=== PATIENT | male | born 1950 | race Caucasian/White ===

== ENCOUNTER 2016-11-07 17:30 | Inpatient (IN) | payer OTHER ==
[~2016-11-07] VITALS: Ht 193 cm; Wt 90.9 kg
[~2016-11-07 17:30] MED LIST: ALEVE220 M1 PO; ASPIR 8181 M1 PO; ASPIR-TRIN325 M1 PO; ATARAX,VISTARIL50 MG PO; AUGMENTIN875 MG PO; Ambien PO; Atarax,Vistaril PO; CAMPRAL333 MG PO; EFFEXOR XR150 MG PO; Effexor XR PO; FLEXERIL10 MG PO; LIPITOR20 MG PO; LORTAB 5-325 M1 EACH PO; MOBIC7.5 MG PO; NORVASC5 MG PO; PREDNISONE10 MG PO; SPIRIVA1 INHALATI IH; VENLAFAXINE HCL75 MG PO; VISTARIL25 M1 PO; ZYPREXA20 MG PO
[2016-11-07 18:36] LABS: HEMATOCRIT 45.7 % (38.0-50.0); MCH 31.2 PG (29.0-34.0); MCHC 34.8 G/DL (30.0-36.0); MCV 89.8 FL (86-99); MEAN PLAT.VOLUME 8.8 uM^3 (9.0-12.4); PLATELET COUNT 267 K/uL (156-360); RBC DIS.WIDTH-CV 13.3 % (11.8-14.6); RED BLOOD COUNT 5.09 M/uL (4.00-5.50); WHITE BLOOD COUNT 11.9 K/uL (4.1-10.2)
[2016-11-07 18:51] LABS: CHLORIDE 101 mEq/L (99-109); POTASSIUM 4.8 mEq/L (3.7-5.4); SODIUM 135 mEq/L (136-147)
[2016-11-07 18:53] LABS: GLUCOSE 86 mg/dL (70-99)
[2016-11-07 18:54] LABS: ANION GAP 10 MEQ/L (2-14)
[2016-11-07 18:57] LABS: GFR ESTIMATE (CALCULATED) > 59 mL/min/; UREA NITROGEN (BUN) 19 mg/dL (9-23)
[2016-11-07 18:59] LABS: TROP-I INTERPRETATION NEGATIVE; TROPONIN-I < 0.01 ng/mL (0.0-0.30)
[2016-11-07] MEDS ORDERED: LIPITOR40 MG PO (19:52)
[2016-11-07] MEDS ORDERED: VENLAFAXINE HCL75 M3 PO (19:52)
[2016-11-07] MEDS ORDERED: CARDIZEM CD,CA180 MG PO (19:53)
[2016-11-07] MEDS ORDERED: VALSARTAN80 MG PO (19:53)
[2016-11-07 21:28] LABS: ALKALINE PHOSPHATASE 103 IU/L (3-129); SERUM ETHYL ALCOHOL < 10 mg/dL
[2016-11-07 21:28] LABS: ADD MIUA? YES; BILIRUBIN NEGATIVE; BLOOD NEGATIVE; COLOR YELLOW ((YELLOW)); GLUCOSE (STRIP) NEGATIVE; KETONES NEGATIVE; LEUKOCYTES LARGE; NITRITE POSITIVE; PROTEIN (STRIP) NEGATIVE; SPECIFIC GRAVITY 1.005 (1.000-1.030); UROBILINOGEN 0.2 MG/DL (0.2-1.0)
[2016-11-07 21:31] LABS: DIRECT BILIRUBIN 0.4 mg/dL (0.0-0.3)
[2016-11-07 21:33] LABS: BACTERIA 3+ /HPF; EPITHELIAL CELLS NONE SEEN /HPF; MUCUS NONE SEEN /LPF; RED BLOOD CELLS 0-5 /HPF (0-5); UCUL ADDED? YES; WHITE BLOOD CELLS TNTC /HPF (0-5); WHITE BLOOD CELLS CLUMP MOD /HPF (0-5)
[2016-11-07 21:42] LABS: ADD MEDTOX COMMENT Y; AMPHETAMINE NEGATIVE (500 ng/mL); BARBITURATES NEGATIVE (200 ng/mL); BENZODIAZEPINES NEGATIVE (150 ng/mL); COCAINE NEGATIVE (150 ng/mL); INTERNAL CONTROLS VALID? YES; METHADONE NEGATIVE (200 ng/mL); METHAMPHETAMINE NEGATIVE (500 ng/mL); OPIATES (MORPHINE) NEGATIVE (100 ng/mL); OXYCODONE NEGATIVE (100 ng/mL); PHENCYCLIDINE NEGATIVE (25 ng/mL); PROPOXYPHENE NEGATIVE (300 ng/mL); THC CANNABINOIDS PRESUMPTIVE POSITIVE (50 ng/mL); TRICYCLIC ANTIDEPRESSANTS NEGATIVE (300 ng/mL)
[2016-11-07 22:54] VITALS: BP 109/65
[2016-11-08 01:32] LABS: TROP-I INTERPRETATION NEGATIVE; TROPONIN-I < 0.01 ng/mL (0.0-0.30)
[2016-11-08 03:43] VITALS: BP 126/70
[2016-11-08 08:43] VITALS: BP 131/64
[2016-11-08 08:56] LABS: HDL CHOLESTEROL 53 MG/DL (Desirable>=40); LDL CHOLESTEROL 57 mg/dL (Desirable<100); NON-HDL CHOLESTEROL 69 mg/dL (Desirable<160); TOTAL CHOLESTEROL 122 mg/dL (Desirable<200); TRIGLYCERIDES 59 MG/DL (Normal: <150)
[2016-11-08 08:57] LABS: TROP-I INTERPRETATION NEGATIVE; TROPONIN-I < 0.01 ng/mL (0.0-0.30)
[2016-11-08 11:27] VITALS: BP 141/81
[2016-11-08] MEDS ORDERED: COREG3.125 M1 PO (15:44)
[2016-11-08] MEDS ORDERED: CEFDINIR300 MG PO (15:44)
== END 2016-11-08 16:23 | disposition home or self-care (01) | DRG 300 ==
LOC: EME 17:30 → EDOF 20:39 → 5WEST 22:44
PROVIDERS: Physician Assistant Medical
DX: I77.79 Dissection of other specified artery (principal); N02.9 Recurrent and persistent hematuria with unspecified morphologic changes; J44.9 Chronic obstructive pulmonary disease, unspecified; E78.5 Hyperlipidemia, unspecified; N39.0 Urinary tract infection, site not specified; F12.90 Cannabis use, unspecified, uncomplicated; F17.210 Nicotine dependence, cigarettes, uncomplicated; F31.9 Bipolar disorder, unspecified; G47.30 Sleep apnea, unspecified; I10 Essential (primary) hypertension; I25.119 Atherosclerotic heart disease of native coronary artery with unspecified angina pectoris; I25.2 Old myocardial infarction; I77.819 Aortic ectasia, unspecified site; N28.1 Cyst of kidney, acquired; Q43.3 Congenital malformations of intestinal fixation; Q63.2 Ectopic kidney; Z79.82 Long term (current) use of aspirin; Z79.899 Other long term (current) drug therapy; Z85.51 Personal history of malignant neoplasm of bladder; Z86.010 Personal history of colon polyps; Z87.440 Personal history of urinary (tract) infections; R61 Generalized hyperhidrosis; G47.33 Obstructive sleep apnea (adult) (pediatric); R07.1 Chest pain on breathing
CPT/HCPCS: 71020; 71275; 74177; 80048; 80061; 80076; 80306 90; 81003; 84484; 84999; 85027; 87077; 87086; 87186; 93005; 99281; 99285; G0378; G0480; J0696; J1650; J7030; J7050; Q0177; S0028

== ENCOUNTER 2018-01-23 17:49 | Inpatient (IN) | payer OTHER ==
[~2018-01-23] VITALS: Ht 193 cm; Wt 93.5 kg
[~2018-01-23 17:49] MED LIST changes: +CARDIZEM CD,CA180 MG PO; +CEFDINIR300 MG PO; +COREG3.125 M1 PO; +LIPITOR40 MG PO; +VALSARTAN80 MG PO; +VENLAFAXINE HCL75 M3 PO
[2018-01-23 18:29] LABS: HEMATOCRIT 42.9 % (38.0-50.0); MCH 31.6 PG (29.0-34.0); MCV 90.5 FL (86-99); PLATELET COUNT 254 K/uL (156-360); RBC DIS.WIDTH-CV 13.5 % (11.8-14.6); RBC DIS.WIDTH-SD 45.1 % (39-53); RED BLOOD COUNT 4.74 M/uL (4.00-5.50); WHITE BLOOD COUNT 9.6 K/uL (4.1-10.2)
[2018-01-23 18:37] LABS: CHLORIDE 106 mEq/L (99-109)
[2018-01-23 18:38] LABS: POTASSIUM 4.1 mEq/L (3.7-5.4); SODIUM 141 mEq/L (136-147)
[2018-01-23 18:39] LABS: GLUCOSE 94 mg/dL (70-99)
[2018-01-23 18:42] LABS: SERUM ETHYL ALCOHOL < 10 mg/dL
[2018-01-23 18:43] LABS: CREATININE 1.1 mg/dL (0.6-1.3); GFR ESTIMATE (CALCULATED) > 59 mL/min/ (58.99-99999)
[2018-01-23 18:44] LABS: UREA NITROGEN (BUN) 13 mg/dL (9-23)
[2018-01-23] MEDS ORDERED: DILTIAZEM 24HR180 M3 PO (21:52)
[2018-01-23] MEDS ORDERED: FLOMAX0.4 MG PO (21:53)
[2018-01-23 21:54] LABS: AMPHETAMINE NEGATIVE (500 ng/mL); BARBITURATES NEGATIVE (200 ng/mL); BENZODIAZEPINES NEGATIVE (150 ng/mL); BUPRENORPHINE NEGATIVE (10 ng/mL); COCAINE NEGATIVE (150 ng/mL); METHADONE NEGATIVE (200 ng/mL); METHAMPHETAMINE NEGATIVE (500 ng/mL); OPIATES (MORPHINE) NEGATIVE (100 ng/mL); OXYCODONE NEGATIVE (100 ng/mL); PHENCYCLIDINE NEGATIVE (25 ng/mL); PROPOXYPHENE NEGATIVE (300 ng/mL); THC CANNABINOIDS PRESUMPTIVE POSITIVE (50 ng/mL); TRICYCLIC ANTIDEPRESSANTS NEGATIVE (300 ng/mL)
[2018-01-23 23:55] VITALS: BP 129/82
[2018-01-24 00:10] VITALS: BP 125/75
[2018-01-24] MEDS ORDERED: MOTRIN400 MG PO (00:51)
[2018-01-24 08:06] VITALS: BP 138/75
[2018-01-24 16:25] VITALS: BP 121/80
[2018-01-25 08:11] VITALS: BP 123/79
[2018-01-25 16:30] VITALS: BP 124/62
[2018-01-26 08:07] VITALS: BP 136/68
[2018-01-26 17:11] VITALS: BP 136/68
[2018-01-27 07:35] VITALS: BP 145/67
[2018-01-27] MEDS ORDERED: BUSPAR10 MG PO (12:36)
== END 2018-01-27 15:20 | disposition home or self-care (01) | DRG 885 ==
LOC: EME 17:49 → EDOF 21:30 → 1WEST 21:30 → ENRESERV 23:49 → 1WEST 01-27 15:20
PROVIDERS: Emergency Medicine Emergency Medical Services
DX: F31.4 Bipolar disorder, current episode depressed, severe, without psychotic features (principal); R45.851 Suicidal ideations; I10 Essential (primary) hypertension; F17.200 Nicotine dependence, unspecified, uncomplicated; F12.10 Cannabis abuse, uncomplicated; G47.30 Sleep apnea, unspecified; J44.1 Chronic obstructive pulmonary disease with (acute) exacerbation; E78.00 Pure hypercholesterolemia, unspecified; G47.9 Sleep disorder, unspecified; F41.9 Anxiety disorder, unspecified; I25.2 Old myocardial infarction; Z85.51 Personal history of malignant neoplasm of bladder
CPT/HCPCS: 80048; 84999; 85027; 90839; 97150 GO; 97165 GO; 99281; 99285; G0480; Q0177